=== PATIENT | male | born 1955 | race Caucasian/White ===

== ENCOUNTER 2019-12-04 15:15 | Emergency (ER) | payer BC ==
[2019-12-04] MEDS ORDERED: LIDOCAINE 2% INJ (20 MG/ML) 20 ML MDV ONE (15:21)
[2019-12-04] MEDS ORDERED: CEFAZOLIN 2 GM/D5W RTU 2 GM/50 ML RTUPB IV ONE (15:30)
[2019-12-04] MEDS ORDERED: LIDOCAINE 2% INJ (20 MG/ML) 20 ML MDV INJ ONE (15:31)
[2019-12-04] MEDS ORDERED: CEFAZOLIN INJ 1 GM VIAL ONE (15:36)
--- NOTE | 2019-12-04 16:20 | RADIOLOGY REPORT (SQ) ---
EXAM DESCRIPTION: HAND LEFT 2 VIEWS IMAGES COMPLETED DATE/TIME: 12/04/2019 4:02 pm REASON FOR STUDY: Fifth finger partial amputation COMPARISON: None. EXAM PARAMETERS: NUMBER OF VIEWS: Three views. TECHNIQUE: AP, lateral and oblique radiographic images acquired of the left hand. LIMITATIONS: None. FINDINGS: MINERALIZATION: Normal. BONES: Traumatic partial amputation through the distal small finger. Well-marginated oblique partial amputation of the small finger middle phalanx radial head. Irregularly marginated partial amputatio n of the small finger distal phalanx body/tuft junction with minimal fragmentation. Largely missing small finger distal phalanx body and base. JOINTS: No effusions. SOFT TISSUES: Soft tissue injury of the distal small finger. OTHER: No other significant finding. IMPRESSION: Traumatic partial amputation of the distal small finger as described above. TECHNICAL DOCUMENTATION: JOB ID: [id number] 2010 [employer]- All Rights Reserved Reading location - IP/workstation name: [email or web address]
--- NOTE | 2019-12-04 16:50 | ER Document Report ---
ED Hand/Wrist Injury - General Chief Complaint: Finger Injury Stated Complaint: FINGER INJURY Time Seen by Provider: 12/04/19 15:29 Primary Care Provider: JUAN R ANTOINE MD [ACTIVE PROVISIONAL STAFF] - Follow up as needed Mode of Arrival: Ambulatory Information source: Patient Notes: 64-year-old male presents to the emergency department with a injury to his left fifth finger. Apparently he was using a table saw and accidentally hit the tip of the fifth finger. There is a markedly disfigured fingertip with attachment to the palm skin tissue. He denies any other injury. His tetanus is up-to-date. He is not allergic to any medications. He is left-handed. TRAVEL OUTSIDE OF THE [place] IN LAST 30 DAYS: No - Related Data Allergies/Adverse Reactions: No Known Allergies Allergy (Unverified 08/09/15 17:22) Past Medical History - Social History Smoking Status: Current Every Day Smoker Chew tobacco use (# tins/day): No Frequency of alcohol use: None Drug Abuse: None Family History: Reviewed & Not Pertinent Patient has homicidal ideation: No - Past Medical History Cardiac Medical History: Reports: Hx Hypertension GI Medical History: Reports: Hx Gastroesophageal Reflux Disease Psychiatric Medical History: Denies: Hx Depression Past Surgical History: Reports: Hx Cholecystectomy, Hx Kidney (Renal Surgery) - right kidney lower lobe removed Review of Systems - Review of Systems Notes: Constitutional: Negative for fever. HENT: Negative for sore throat. Eyes: Negative for visual changes. Cardiovascular: Negative for chest pain. Respiratory: Negative for shortness of breath. Gastrointestinal: Negative for abdominal pain, vomiting or diarrhea. Genitourinary: Negative for dysuria. Musculoskeletal: + Left fifth digit injury Skin: Negative for rash. Neurological: Negative for headaches, weakness or numbness. 10 point ROS negative except as marked above and in HPI. Physical Exam - Vital signs Vitals: Temp 97.8 F 12/04/19 15:29 - Notes Notes: PHYSICAL EXAMINATION: Physical Exam: General: Well-nourished well-developed 64-year-old male in no acute distress HEENT: NC/AT, pupils equal round and reactive to light, MM moist,nares clear, oropharynx clear, airway patent Neck: supple, no adenopathy, no masses. Good range of motion Lungs: clear, no wheezing, no rales no rhonchi CVS: Regular rate and rhythm no murmur gallop or rub Abdomen: Soft, active, nontender, no masses, no hepatosplenomegaly Ext: Left fifth digit with distal phalanx with a mangle tissue and active bleeding, the amputation proceeds from below the nailbed with strands of tissue attached to the proximal finger. Neuro: Alert and responsive, moving all 4 extremities on command, cranial nerves intact, no focal findings Skin: Intact no open lesions, no rash PSYCH: Normal mood, normal affect. Course - Re-evaluation Re-evalutation: 12/04/19 16:47 With the orthopedist on-call Dr. Antoine was contacted, he is suggested that the distal tissue be removed and dressing applied and patient may follow-up in the office. I discussed with the patient removing the tip of the finger and controlling the bleeding. He is understanding that the tip of the finger is not salvageable given the amount of devascularized tissue. An x-ray shows that the very tip of the finger is fractured. - Vital Signs Vital signs: Temp Pulse Resp BP Pulse Ox 97.8 F 12/04/19 15:29 - Diagnostic Test Radiology reviewed: Image reviewed, Reports reviewed - X-ray left hand: Traumatic amputation of the distal fifth digit with tuft fracture noted. Procedures - Laceration/Wound Repair Left Finger Time completed: 16:45 - Amputation left fifth finger Wound length (cm): 2 Wound's Depth, Shape: Other - Amputation of the tip of the left fifth finger Laceration pre-procedure: Chloraprep applied, Sterile drapes applied Anesthetic type: 2% Lidocaine Volume Anesthetic (mLs): 3 Wound explored: Clean Wound Debrided: Moderate - Distal tissue and devitalized tissue were debrided from the proximal finger. Wound Repaired With: Sutures - A flap was performed with the remaining tissue and seven 5-0 Vicryl sutures were placed to control bleeding and to stabilize the flap. Suture Size/Type: 5:0, Vicryl Number of Sutures: 7 Layer Closure?: No Post-procedure wound care: Sterile dressing applied Discharge - Discharge Clinical Impression: Left fifth fingertip amputation Condition: Good Disposition: HOME, SELF-CARE Additional Instructions: You were seen in the emergency department with a traumatic amputation of the distal left fifth finger. A surgical repair was done to temporize the bleeding and also to keep tissue in place. Please take the antibiotics and use the pain medicines as prescribed. Please follow-up with the orthopedist, Dr. Antoine on Friday called the office to schedule appointment. If you have complications or other concerns you may return to the emergency department for further evaluation and treatment HOME CARE INSTRUCTIONS & INFORMATION: Thank you for choosing us for your medical needs. We hope you're satisfied with the care you received. After you leave, you must properly care for your problem and, at the same time, observe its progress. Any condition can change. Some illnesses can change rapidly over hours or days. If your condition worsens, return to the Emergency Department or see your physician promptly. ABOUT YOUR X-RAYS AND EKG'S: If you had an EKG or X-rays taken, they have been read by the Emergency Physician. The X-rays and EKG's will also be read by a Radiologist or Chief Innovation Officer within 24 hours. If discrepancies are noted, you will be notified by telephone. Please be certain the ED has a correct telephone number & address where you can be reached. Also, realize that some fractures or abnormalities do not show up on initial X-rays. If your symptoms continue, see your physician. ABOUT YOUR LABORATORY TEST: If you had laboratory tests, the results have been reviewed by the Emergency Physician. Some test results (for example cultures) may not be available for several days. You will be contacted if any test result shows you need additional treatment. Please be certain the ED has a correct telephone number and address where you can be reached. ABOUT YOUR MEDICATIONS: You will receive instructions on how to take your medicine on the prescription label you receive. Additional information may be provided by the Pharmacy. If you have questions afterwards, call the ED for clarification or further instructions. Some prescribed medications may cause drowsiness. Do not perform tasks such as driving a car or operating machinery without consulting your Pharmacist. If you feel you need a refill of pain medication, your condition will need re-evaluation. Please do not call for a refill of any medication. ABOUT YOUR SIGNATURE: Signature of this document acknowledges to followin. Understanding that you received emergency treatment and that you may be released before al medical problems are known or treated. Please be certain the ED has a correct phone number & address where you can be reached. 2. Acknowledgement that you will arrange for follow-up care as recommended. 3. Authorization for the Emergency Physician to provide information to your follow-up Physician in order to maximize your care. AT ANY TIME, IF YOUR SYMPTOMS CHANGE SIGNIFICANTLY OR WORSEN OR YOU DEVELOP NEW SYMPTOMS, RETURN TO THE EMERGENCY DEPARTMENT IMMEDIATELY FOR RE-EVALUATION. OUR GOAL IS TO PROVIDE EXCELLENT MEDICAL CARE! WE HOPE THAT WE HAVE MET YOUR EXPECTATIONS DURING YOUR EMERGENCY DEPARTMENT VISIT AND THAT YOU FEEL YOU HAVE RECEIVED EXCELLENT CARE! Prescriptions: Cephalexin Monohydrate [Keflex 500 mg Capsule] 500 mg PO Q8 10 Days capsule Ibuprofen [Motrin 800 mg Tablet] 800 mg PO Q8H PRN #30 tab PRN Reason: Oxycodone HCl/Acetaminophen [Percocet 5-325 mg Tablet] 1 - 2 tab PO Q4H PRN #15 tablet PRN Reason: Referrals: JUAN R ANTOINE MD [ACTIVE PROVISIONAL STAFF] - Follow up as needed
== END 2019-12-04 17:35 | disposition home or self-care (01) ==
LOC: ER 15:15
DX: S68.117A Complete traumatic metacarpophalangeal amputation of left little finger, initial encounter (principal); W29.8XXA Contact with other powered hand tools and household machinery, initial encounter; F17.200 Nicotine dependence, unspecified, uncomplicated; Z90.49 Acquired absence of other specified parts of digestive tract
CPT/HCPCS: 99283; 96365; 73120; 13131; J3490; J0690